=== PATIENT | male | born 1960 | race Caucasian/White ===

== ENCOUNTER 2016-10-07 16:31 | Inpatient (IN) | payer OTHER ==
[~2016-10-07] VITALS: Ht 160 cm; Wt 72.6 kg
[~2016-10-07 16:31] MED LIST: DIAZ-90 PO; DIPH25CA6; NAPR-688 PO
[2016-10-07 18:22] LABS: ADD SCAN DIFF NO
[2016-10-07 18:23] LABS: BASOPHILS % 0.4 % (0.0-2.0); EOSINOPHILS % 0.4 % (0.0-7.0); HEMATOCRIT 49.2 % (42.0-52.0); HEMOGLOBIN 17.1 g/dl (14.0-18.0); LYMPHOCYTES # 2.1 10^3/ul (0.8-2.9); LYMPHOCYTES % 22.9 % (15.0-51.0); MEAN CORPUSCULAR HEMOGLOBIN 30.4 pg (29.0-33.0); MEAN CORPUSCULAR HGB CONC 34.8 g/dl (32.0-37.0); MEAN CORPUSCULAR VOLUME 87.5 fl (82.0-101.0); MEAN PLATELET VOLUME 9.5 fl (7.4-10.4); MONOCYTE # 0.5 10^3/ul (0.3-0.9); MONOCYTES % 5.5 % (0.0-11.0); NEUTROPHIL # 6.6 10^3/ul (1.6-7.5); NEUTROPHILS % 70.5 % (39.0-77.0); PLATELET COUNT 265 10^3/UL (140-415); RED BLOOD COUNT 5.62 10^6/ul (4.70-6.10); RED CELL DISTRIBUTION WIDTH 12.7 % (11.5-14.5); WHITE BLOOD COUNT 9.3 10^3/ul (4.8-10.8)
[2016-10-07 18:51] LABS: CALCIUM 10.1 mg/dl (8.4-10.2); CREATININE 0.78 mg/dl (0.61-1.24)
[2016-10-07] MEDS ORDERED: IOHEXOL 300MG/ML 150 ML BTL ONE (19:00)
[2016-10-07] MEDS ORDERED: SOD CHLORIDE 0.9% 100 ML ONE (19:00)
--- NOTE | 2016-10-07 19:56 | RADRPT ---
PROCEDURE: CT scan of the neck with contrast. CLINICAL INDICATION: Dysphagia, foreign body sensation. TECHNIQUE: A CT scan of the neck was performed with intravenous contrast. Coronal and sagittal re formats were generated. 80 cc of Omnipaque 300 were administered during examination without complica tion. CTDIvol: 9.88 mGy. DLP: 255.73 mGy-cm. One or more of the following dose reduction techniques were used: - Automated exposure control. - Adjustment of the mA and/or kV according to patient size. - Use of iterative reconstruction technique. COMPARISON: None. FINDINGS: There is abnormal soft tissue thickening in the region of the aryepiglottic folds, right more than l eft. There is no cervical lymphadenopathy. The major salivary glands are unremarkable. There is a 1 .1 cm hypodense right thyroid lesion, nonspecific. The carotid arteries are unremarkable. The visualized intracranial structures are unremarkable. The visualized paranasal sinuses and masto id air cells are clear. IMPRESSION: 1. Abnormal soft tissue thickening in the region of the aryepiglottic folds, right more than left. A neoplastic process is not excluded. Further evaluation with endoscopy is recommended. 2. No cervical lymphadenopathy. 3. Nonspecific 1.1 cm hypodense right thyroid lesion. Further evaluation with non emergent ultraso und is recommended. RPTAT: HTAR .Daniel Pack MD, Date Time Electronically viewed and signed by .Daniel Pack MD, on 10/07/2016 19:55 .R/
[2016-10-07] MEDS ORDERED: ONDANSETRON 4 MG INJ IV PRN ×2 (22:00→23:30)
[2016-10-07] MEDS ORDERED: ACETAMINOPHEN 325 MG TAB PO PRN ×2 (22:00→23:30)
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
[2016-10-07 22:20] VITALS: PULSE 78; TEMP 98
[2016-10-07 22:50] VITALS: BP 142/98; RESP 19
[2016-10-07 22:54] VITALS: Ht 160 cm; Wt 72.6 kg
[2016-10-07] MEDS ORDERED: ALBUTEROL/IPRATROPIUM (NEB) 3 ML AMP HHN PRN (23:30)
[2016-10-07] MEDS: DEXTROSE 5%-0.9% NACL 1,000 ML IV SCH (23:46)
[2016-10-08 05:25] LABS: ADD SCAN DIFF NO
[2016-10-08 05:32] LABS: BASOPHILS % 0.3 % (0.0-2.0); EOSINOPHILS # 0.1 10^3/ul (0.0-0.5); EOSINOPHILS % 0.8 % (0.0-7.0); HEMATOCRIT 47.5 % (42.0-52.0); HEMOGLOBIN 15.9 g/dl (14.0-18.0); LYMPHOCYTES # 2.4 10^3/ul (0.8-2.9); LYMPHOCYTES % 25.6 % (15.0-51.0); MEAN CORPUSCULAR HEMOGLOBIN 29.7 pg (29.0-33.0); MEAN CORPUSCULAR HGB CONC 33.5 g/dl (32.0-37.0); MEAN CORPUSCULAR VOLUME 88.8 fl (82.0-101.0); MEAN PLATELET VOLUME 9.9 fl (7.4-10.4); MONOCYTE # 0.6 10^3/ul (0.3-0.9); NEUTROPHIL # 6.3 10^3/ul (1.6-7.5); PLATELET COUNT 257 10^3/UL (140-415); RED BLOOD COUNT 5.35 10^6/ul (4.70-6.10); RED CELL DISTRIBUTION WIDTH 12.7 % (11.5-14.5); WHITE BLOOD COUNT 9.3 10^3/ul (4.8-10.8)
[2016-10-08] MEDS ORDERED: PANTOPRAZOLE 40 MG INJ IV SCH (06:00)
[2016-10-08 06:16] LABS: ALBUMIN 4.8 g/dl (3.3-4.9); ALBUMIN/GLOBULIN RATIO 1.5; BILIRUBIN,INDIRECT 0.4 mg/dl (0-1.1); BILIRUBIN,TOTAL 0.4 mg/dl (0.2-1.3); CALCIUM 9.5 mg/dl (8.4-10.2); CREATININE 0.78 mg/dl (0.61-1.24); POTASSIUM 3.9 mmol/L (3.5-5.1)
[2016-10-08 07:55] VITALS: BP 126/81; RESP 20
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
[2016-10-08] MEDS: DEXTROSE 5%-0.9% NACL 1,000 ML IV SCH (13:48)
--- NOTE | 2016-10-08 16:27 | PDOCDIS ---
Discharge Instructions CONDITION Patient Condition: Stable HOME CARE INSTRUCTIONS: Special Diet: NPO ACTIVITY: Activity Restrictions: Slowly Increase Activity FOLLOW UP/APPOINTMENTS Appointments see pcp [address] yusuf 2 wks JOI SHARMA MD Oct 08, 2016 16:26
[2016-10-08] MEDS ORDERED: PANT40TA3 PO (16:28)
--- NOTE | 2016-10-08 17:45 | QN ---
Documentation Comment [id number] JOI SHARMA MD Oct 08, 2016 17:44
--- NOTE | 2016-10-08 18:11 | HP ---
DATE OF ADMISSION: 10/07/2016 HISTORY OF PRESENT ILLNESS: The patient is a 55-year-old male who has a history of diverticulitis and surgery in the past, presented complaining of numbness and throat pain. The patient is complaining of history of dysphagia, choking episodes and foreign body sensation in the throat. LABORATORY DATA: Hematocrit 47.5, sodium _, potassium 3.9. Soft tissue neck shows patient has abnormal soft tissue thickening of the region of the aryepiglottic folds, right more than left. Patient has a nonspecific 1.1 cm hypodense right thyroid lesion. PAST MEDICAL HISTORY: Diverticulitis. ALLERGY HISTORY: _ANTIBIOTICS, CIPRO. SOCIAL HISTORY: Negative. FAMILY HISTORY: Noncontributory. MEDICATIONS AT HOME: Protonix. REVIEW OF SYSTEMS: HEENT: Unremarkable. RESPIRATORY: As mentioned above. CARDIOVASCULAR: Unremarkable. ABDOMEN: Unremarkable. EXTREMITIES: Unremarkable. GENITOURINARY: Unremarkable. MUSCULOSKELETAL: Unremarkable. PHYSICAL EXAMINATION: GENERAL: The patient is awake and alert. VITAL SIGNS: Stable. HEAD: Atraumatic, normocephalic. Pupils are equal, reactive to light. NECK: Supple. There is no JVD. LUNGS: Clear. CARDIOVASCULAR: S1, S2 are normal. ABDOMEN: Soft, nontender. Bowel sounds present. No palpable mass or hepatosplenomegaly. No guarding, rebound tenderness. EXTREMITIES: There is no cyanosis, clubbing, or edema. CENTRAL NERVOUS SYSTEM: The patient is awake, alert, no deficit. LABORATORY DATA: As mentioned above. IMPRESSION: 1. The patient has possible gastroesophageal reflux disease. 2. The patient has possible laryngeal reflux. 3. History of diverticulitis. PLAN: To obtain an ENT consultation, PPI, pain medication. The patient is stable. Dictated By: JOI SHARMA MD BS/NTS Conf#: [id number] DID#: [id number]
== END 2016-10-08 18:40 | disposition home or self-care (01) | DRG 392 ==
LOC: E/R 16:31 → PP2 22:01
PROVIDERS: ADMIT Internal Medicine Nephrology; ATTEND Internal Medicine Nephrology
PROC: 0CJS8ZZ Inspection of Larynx, Via Natural or Artificial Opening Endoscopic (ICD-10-PCS; principal; 2016-10-08)
DX: R13.10 Dysphagia, unspecified (principal); T17.308A Unspecified foreign body in larynx causing other injury, initial encounter; E04.1 Nontoxic single thyroid nodule; K21.9 Gastro-esophageal reflux disease without esophagitis
CPT/HCPCS: 70491; 80048; 80053; 85025; C9113; J7042; Q9967